=== PATIENT | female | born 1985 | race Caucasian/White ===

== ENCOUNTER 2017-04-28 10:20 | Emergency (ER) | payer MEDICAID ==
[2017-04-28 10:32] VITALS: BP 118/83
--- NOTE | 2017-04-28 10:37 | ERNOTE ---
ENT HPI Date of Service: 04/28/17 Time Seen by Provider: 04/28/17 10:37 Source: patient, RN notes reviewed Exam Limitations: no limitations - Immun/Allergies/Home Medications Immunizations: IMMUNIZATION HX Immunizations Up to Date Yes History of Influenza Vaccine Yes Hx Pneumococcal Vaccination No Allergies/Adverse Reactions: Allergies Allergy/AdvReac Type Severity Reaction Status Date / Time No Known Allergies Allergy Verified 04/28/17 10:32 Home Medications: HOME MEDICATIONS Polymyxin B Sulf/Trimethoprim [Polytrim Ophthalmic Solution] 1 drop EACHEYE Q3H #10 ml 04/28/17 [Last Taken Unknown] - History of Present Illness Narrative: Woke up with right eye redness, irritation and drainage. Denies sick contacts or associated URI symptoms. She does wear contacts but has not for a while. States that the eye was fine when she went to bed last night. Date (Duration): 04/28/17 ENT Location: Present: eye (R) Prearrival Treatment: Present: no prearrival treatment Prior Treament: Denies: recently seen, similar symptoms before Review of Systems - Review of Systems Constitutional: Absent: recent illness, fever, chills, malaise EYE: Present: eye pain, eye discharge. Absent: vision changes, tearing ENT: Absent: nose congestion, nasal drainage, sore throat Respiratory: Present: wheezing. Absent: shortness of breath, cough Gastrointestinal/Abdominal: Absent: nausea, abdominal pain Genitourinary: Present: no symptoms reported Musculoskeletal: Absent: muscle pain, neck pain Skin: Absent: rash, lesions, lumps Neurological: Absent: headache, dizziness/light-headedness Endocrine: Present: no symptoms reported Hematologic/Lymphatic: Present: no symptoms reported Psych: Present: no symptoms reported - Patient's Past Medical History Patient History - Medical: No pertinent hx Patient History - Cardiac/Respiratory: No pertinent hx Patient History - Cancer: No Hx of Cancer Patient History - Surgical Procedures: No surgical history Patient History - Other: None - Family History Father Family History - Cardiac/Respiratory: Atrial Fibrillation, Asthma, Hyperlipidemia Mother Family History - Cardiac/Respiratory: No pertinent hx - Social History Living Situations: home Abuse History: No History of abuse Psych History: No pertinent hx - Immunizations Immunizations Up to Date: Yes Hx Pneumococcal Vaccination: No History of Influenza Vaccine: Yes Physical Exam - Physical Exam General Appearance: Present: alert, no apparent distress, thin Head Exam: Present: normal inspection, no evidence of injury. Absent: swelling , tenderness Eye Exam: PERRL: bilateral, Eye drainage: right, Other: bilateral - Moderate conjuctival injection on right, mild on left Ears, Nose, Throat: Present: normal ENT inspection, normal pharynx Neck: Present: normal inspection, nontender, supple Respiratory: Present: no respiratory distress, normal breath sounds, no accessory muscle use, lungs clear Cardiovascular/Chest: Present: regular rate, rhythm, no murmur Extremity Exam: Present: normal inspection, normal range of motion Neurological Exam: Present: alert, oriented, normal mood/affect, no motor/ sensory deficits Skin Exam: Present: normal color, warm/dry ED Progress - Vital Signs Patient's Vital Signs:: I have reviewed the patient's vital signs. Vital Signs: Vital Signs 04/28/17 10:28 Temperature 35.9 C L Pulse Rate 96 Respiratory 12 Rate Blood Pressure 118/83 O2 Sat by Pulse 98 Oximetry - Progress/Reassessment Chief Complaint: Eye Injury/Trauma Progress:: Unchanged Departure Clinical Impression: Conjunctivitis Qualifiers: Conjunctivitis type: acute Acute conjunctivitis type: unspecified Laterality: bilateral Qualified Code(s): H10.33 - Unspecified acute conjunctivitis, bilateral - Departure Disposition: Home self-care Condition: Good Instructions: Bacterial Conjunctivitis, [id number] Additional Instructions: Frequent handwashing Follow up as needed for persistent/worsening symptoms Referrals: Yuriy Casas MD [Primary Care Provider] - Prescriptions: Polymyxin B Sulf/Trimethoprim [Polytrim Ophthalmic Solution] 1 drop EACHEYE Q3H #10 ml
== END 2017-04-28 10:55 | disposition home or self-care (01) ==
LOC: ER 10:20
DX: H10.33 Unspecified acute conjunctivitis, bilateral (principal)